=== PATIENT | female | born 1980 | race Hispanic/Latino ===

== ENCOUNTER 2021-04-01 12:11 | Emergency (ER) | payer BC ==
[~2021-04-01] VITALS: Ht 165.1 cm; Wt 73.0 kg
[2021-04-01 15:11] VITALS: BP 137/77
== END 2021-04-01 15:15 | disposition home or self-care (01) ==
LOC: ER 12:52
DX: R20.2 Paresthesia of skin (principal); K21.9 Gastro-esophageal reflux disease without esophagitis
CPT/HCPCS: 71045; 93005; 99283; U0002